=== PATIENT | female | born 1965 | race Caucasian/White ===

== ENCOUNTER 2016-12-17 23:51 | Emergency (ER) | payer MEDICARE ==
--- NOTE | ~2016-12-17 | CR281 ---
[facility] A Service of [facility] & [facility] RADIOLOGY TEXT RESULTS PATIENT: CHRISTINA JESNEN LOCATION: [facility] : 61 UNIT #: [id number] AGE: [address]: Andrzej Maynard MD SEX: F ORDER DR: [id number] [facility] [address] [place], [place] [address] [id number] E MR#: [id number] #: [id number] NAME: CHRISTINA JENSEN : 1965 SEX: F STUDY DATE/TIME: 12/18/2016 0:03 UNIT: [facility] ROOM: STUDY DESCRIPTION: CR Wrist Min 3 View Lt Attending Physician: Andrzej Maynard M.D. Ordering Physician: Andrzej Maynard M.D. Primary Care Physician: Chaz Loja M.D. MEDICAL IMAGING REPORT This report is preliminary unless electronic signature is present EXAM Left wrist series, 12/18/2016 HISTORY 51-year-old female in the ED complaining of left wrist pain and soft tissue swelling beginning earlier today. No reported acute injury. TECHNIQUE Three-view left wrist series. FINDINGS The examination is negative. No fracture, dislocation, arthropathy or other osseous abnormality is demonstrated. IMPRESSION Negative left wrist series. Dictated by... Chaz Cobb M.D. THIS IS AN ELECTRONICALLY VERIFIED REPORT Chaz Cobb M.D. at 12/18/2016 4:06 AM Jeff TD: 12/18/2016 02:46 JOB #: [id number] MEDICAL IMAGING REPORT Page 1 of 1 COPY
== END 2016-12-18 01:18 | disposition home or self-care (01) ==
LOC: CED 23:51
DX: S63.502A Unspecified sprain of left wrist, initial encounter (principal); M77.9 Enthesopathy, unspecified; F17.210 Nicotine dependence, cigarettes, uncomplicated; Z88.0 Allergy status to penicillin; Z88.2 Allergy status to sulfonamides; Z88.8 Allergy status to other drugs, medicaments and biological substances; X58.XXXA Exposure to other specified factors, initial encounter; Y92.89 Other specified places as the place of occurrence of the external cause
CPT/HCPCS: 29125; 73110; 99283